=== PATIENT | male | born 1950 | race Caucasian/White ===

== ENCOUNTER 2020-06-20 15:09 | Outpatient (CLI) | payer OTHER, SELFPAY ==
--- NOTE | ~2020-06-20 | XR_ITS ---
EXAMINATION: XR hand RT 2V DATE: 06/20/2020 15:40 INDICATION: Anterior right thumb pain post injury TECHNIQUE: Posteroanterior and lateral views of the right hand were obtained. COMPARISON: None. FINDINGS: Alignment is normal. No fracture. Moderate to severe osteoarthritis at the triscaphe joint. Mild oste oarthritis at the first carpometacarpal, first metacarpophalangeal and multiple predominantly distal interphalangeal joints. Soft tissues are unremarkable. IMPRESSION: 1. No acute osseous abnormality. 2. 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 Reviewed, dictated and finalized at location A. M PAN SPONGER IMPRESSION: 1. No acute osseous abnormality. 2. 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
== END 2020-06-20 15:10 | disposition home or self-care (01) ==
PROVIDERS: PCP Internal Medicine; Visit Provider Internal Medicine
DX: S69.91XA Unspecified injury of right wrist, hand and finger(s), initial encounter (principal)
CPT/HCPCS: 73120

== ENCOUNTER 2021-04-19 09:24 | Outpatient (CLI) | payer MEDICARE, SELFPAY ==
--- NOTE | ~2021-04-19 | CT_ITS ---
EXAMINATION: CT diagnostic chest w con EXAM DATE: 04/19/2021 10:15 INDICATION: Apical pulmonary nodule f/u. TECHNIQUE: Spiral CT of the chest following intravenous injection of 75 mL Omnipaque 350. Axial, cor onal and sagittal images of the chest were reviewed. Coronal maximum intensity pixel images of chest reviewed. The dose-length product (DLP) for this examination was 298.88 mGy-cm. The exposure was t ailored according to patient size (auto mA exposure control), and iterative reconstruction (ASIR) was used as additional dose reduction technique. No prior chest CT or chest x-ray for comparison. FINDINGS: Several right lower lobe, right hilar calcified granulomata. The lungs are otherwise clear . There is mild emphysema and hyperinflation. There are no pleural or pericardial effusions. Trach eobronchial tree is patent. There is no mediastinal, hilar or axillary lymphadenopathy. There is no pneumothorax. Heart normal in size. There is mild coronary arterial calcification, arterial sc lerosis. There is a 4 cm cyst superior pole right kidney. There is moderate thoracic spondylosis wi thout osteoblastic or osteolytic lesions identified. IMPRESSION: Mild emphysema and hyperinflation. No apical nodule. Reviewed, dictated and finalized at location B. INUITY MANAGER
[2021-04-19 09:47] LABS: Estimated Glomerular Filt Rate > 60
== END 2021-04-19 09:25 | disposition home or self-care (01) ==
LOC: CHSIMG 09:25
PROVIDERS: PCP Internal Medicine; Visit Provider Internal Medicine
DX: R91.1 Solitary pulmonary nodule (principal)
CPT/HCPCS: 71260; Q9967

== ENCOUNTER 2021-11-13 14:48 | Outpatient (CLI) | payer MEDICARE, SELFPAY ==
--- NOTE | ~2021-11-13 | XR_ITS ---
EXAM: XR wrist LT min 3V DATE: 11/13/2021 15:26 HISTORY: LEFT WRIST PAIN SWELLING RADIAL SIDE . COMPARISON: None available. FINDINGS: Mildly decreased mineralization. No fracture or dislocation. No lytic or blastic lesion. M oderate narrowing and sclerosis at the triscaphe and first carpal metacarpal joints. Degenerative cys ts in the capitate and triquetral bones. No erosion or periosteal change. Wrist soft tissue swelling. IMPRESSION: No acute osseous finding in the left wrist. Degenerative changes described above. Reviewed, dictated and finalized at location K. IMPRESSION: No acute osseous finding in the left wrist. Degenerative changes de scribed above.
== END 2021-11-13 14:49 | disposition home or self-care (01) ==
LOC: CHSIMG 14:50
PROVIDERS: PCP Internal Medicine; Visit Provider Internal Medicine
DX: M25.532 Pain in left wrist (principal); M25.432 Effusion, left wrist
CPT/HCPCS: 73110

== ENCOUNTER 2023-10-11 11:43 | Outpatient (CLI) | payer MEDICARE, SELFPAY ==
--- NOTE | ~2023-10-11 | XR_ITS ---
Left wrist Technique: PA, oblique, lateral, and ulnar deviation views were obtained. Clinical History: Pain COMPARISON: 11/13/2021 Findings: No acute fracture or dislocation is seen. There is moderate degenerative change of the dena caphe joint and first CMC joint, similar to prior exam. Lucent lesion with relative expansion involvi ng the hamate bone extensively stable from prior exam.. Soft tissues are unremarkable. Impression: Overall, no change from prior exam. Stable degenerative changes, as above. 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 Reviewed, dictated and finalized at location . Impression: Overall, no change from prior exam. Stable degenerative changes, as above. 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
== END 2023-10-11 11:44 | disposition home or self-care (01) ==
LOC: CHSIMG 11:45
PROVIDERS: PCP Internal Medicine; Visit Provider Internal Medicine
DX: M25.532 Pain in left wrist (principal)
CPT/HCPCS: 73110

== ENCOUNTER 2023-11-25 11:10 | Outpatient (CLI) | payer MEDICARE, SELFPAY ==
--- NOTE | ~2023-11-25 | XR_ITS ---
[id number] Ordering provider: Rico Mcdaniel MD History: . dizziness, neck pain nki . Comparison: None. FINDINGS: VERTEBRAL BODIES: Normal height and alignment. No visible fracture or subluxation. The dens is intact . DISK SPACES: Narrowing of the disc C6-C7 and C7-T1. Multilevel facet joint disease. Multilevel uncove rtebral joint osteoarthritic changes. PARASPINOUS SOFT TISSUES: No prevertebral soft tissue swelling. Bilateral carotid calcification. IMPRESSION: No acute osseous abnormality cervical spine. Reviewed, dictated and finalized at location A.
[2023-11-25 11:30] LABS: Basophils Absolute Auto 0.08 K/mm3 (0.00-0.10); Eosinophils Absolute Auto 0.38 K/mm3 (0.02-0.50); Eosinophils Percent Auto 4.7 % (1.0-6.0); Hematocrit 35.6 % (37.0-46.0); Immature Granulocyte Absolute 0.03 K/mm3 (0.00-0.00); Immature Granulocyte Percent A 0.4 % (0.0-0.0); Lymphocytes Absolute Auto 1.58 K/mm3 (1.10-4.50); Lymphocytes Percent Auto 19.6 % (18.0-42.0); Mean Corpuscular HGB Conc 33.7 g/dL (32-36); Mean Corpuscular Hemoglobin 29.5 pg (27.0-31.0); Mean Corpuscular Volume 87.5 fL (78.0-102.0); Mean Platelet Volume 9.7 fl (8.7-11.0); Monocytes Absolute Auto 0.96 K/mm3 (0.10-0.90); Monocytes Percent Auto 11.9 % (2.0-11.0); Neutrophils Absolute Auto 5.05 K/mm3 (1.70-7.20); Neutrophils Percent Auto 62.4 % (50.0-70.0); Platelet Count Result 340 K/mm3 (150-420); Red Blood Count 4.07 M/mm3 (4.70-6.10); White Blood Count 8.1 K/mm3 (4.8-10.8)
[2023-11-25 11:31] LABS: Appearance Urine Clear (Clear); Bilirubin Urine Negative (Negative); Blood Urine Trace-intact (Negative); Color Urine Light Yellow (Yellow); Glucose Urine UA Negative (Negative); Ketones Urine Negative (Negative); Leukocyte Esterase Ur Negative (Negative); Nitrate Urine Negative (Negative); Protein Urine Negative (Negative); Urobilinogen Urine 0.2 mg/dL (0.2-1.0)
[2023-11-25 11:42] LABS: Add Urine Microscopic? YES; RBC Urine 0-2 /hpf (0-2); WBC Urine None seen /hpf (0-3)
[2023-11-25 11:43] LABS: Bacteria Urine None seen /hpf; Squamous Epithelial Cell Urine None seen /hpf (Few)
[2023-11-25 12:03] LABS: Alanine Aminotransferase 14 U/L (16-63); Albumin Level 3.6 g/dL (3.4-5.0); Alkaline Phosphatase 86 U/L (46-116); Anion Gap 7 mmol/L (4-12); Aspartate Amino Transferase 20 U/L (15-37); Bilirubin,Total 0.4 mg/dL (0.00-1.00); Calcium 8.8 mg/dL (8.5-10.1); Carbon Dioxide 28 mmol/L (21-32); Chloride 101 mmol/L (98-108); Cholesterol 170 mg/dL (0-200); Estimated Glomerular Filt Rate > 60; Glucose 97 mg/dL (70-99); HDL Direct 63 mg/dL (40-60); LDL Cholesterol Calculated 98 mg/dL (<130); Potassium 4.5 mmol/L (3.5-5.1); Prostate Specific Antigen 1.9 ng/mL (< OR = 4.0); Sodium 136 mmol/L (136-145); Total Protein 7.6 g/dL (6.4-8.2); Triglycerides 45 mg/dL (0-150)
[2023-11-25 12:12] LABS: Blood Urea Nitrogen 6 mg/dL (7-18); Osmolality Calculated 279 mOsm/kg (285-295)
[2023-11-25 12:13] LABS: CRP < 0.5 mg/dL (0.0-0.9)
[2023-11-25 18:24] LABS: Thyroid Stimulating Hormone 3.14 uIU/mL (0.36-3.74)
== END 2023-11-25 11:11 | disposition home or self-care (01) ==
LOC: CHSLAB 11:12
PROVIDERS: PCP Internal Medicine; Visit Provider Internal Medicine
DX: M54.2 Cervicalgia (principal); R42 Dizziness and giddiness; R01.1 Cardiac murmur, unspecified; E78.5 Hyperlipidemia, unspecified; Z12.5 Encounter for screening for malignant neoplasm of prostate
CPT/HCPCS: 36415; 72040; 80053; 80061; 81001; 84153; 84443; 85025; 86140; G0103

== ENCOUNTER 2023-12-26 13:10 | Outpatient (CLI) | payer MEDICARE, SELFPAY ==
--- NOTE | ~2023-12-26 | US_ITS ---
EXAMINATION: US carotid duplex BI DATE: 12/26/2023 14:14 INDICATION: Dizziness TECHNIQUE: Grayscale, color Doppler, and pulsed Doppler images of the cervical carotid arteries were obtained. The degree of vessel stenosis is placed in one of the following categories: normal, <50%, 5 0-69%, >=70% but less than near-occlusion, near-occlusion, or total occlusion. Note that percent sten osis relative to normal distal artery lumen diameter is indirectly measured from velocity measurement s as described by Davion, et al. Radiology 2003; 229:340-346. Notes: Normal: Peak systolic velocity <125 centimeters/sec and no plaque <50%. Peak systolic velocity <125 ( EDV <40; ICA/CCA PSV ratio <2.0; used these factors only a tandem lesions or low cardiac output or co ntralateral disease) 50-69 %: PSV 125-230 (EDV 40-100; ratio 2-4) >= 70% but less than near occlusion: PSV greater than 230 (EDV > 100; ratio> 4.0) Near Occlusion: PSV that is variable; markedly narrowed lumen Occlusion: Absent flow on color/spectral Doppler and no lumen on painter scale. COMPARISON: None. FINDINGS: RIGHT: The right common carotid artery (CCA) peak systolic velocity (PSV) is 83 cm/s. The right internal car otid artery (ICA) PSV is 70 cm/s. The right ICA end-diastolic velocity (EDV) is 30 cm/s. The right IC A/CCA PSV ratio is 0.84. The external carotid artery (ECA) PSV is 52 cm/s. There is antegrade flow in the right vertebral artery. LEFT: The left CCA PSV is 89 cm/s. The left ICA PSV is 75 cm/s. The left ICA EDV is 17 cm/s. The left ICA/C CA PSV ratio is 0.84. The ECA PSV is 85 cm/s. There is antegrade flow in the left vertebral artery. IMPRESSION: 1. Less than 50% stenosis in the right internal carotid artery by sonographic criteria. 2. Less than 50% stenosis in the left internal carotid artery by sonographic criteria. Reviewed, dictated and finalized at location B. IMPRESSION: 1. Less than 50% stenosis in the right internal carotid artery by sonographic joshua gibbs. 2. Less than 50% stenosis in the left internal carotid artery by sonographic nazia wu.
--- NOTE | 2023-12-26 13:19 | ECHO_ITS ---
Patient Info Name: Chaya Cat Age: 73 years : 1950 Gender: Male Ht: 68 in Wt: 176 lbs BSA: 1.97 m2 HR: 60 bpm BP: 150 / 88 mmHg Technical Quality: Fair Exam Date: 12/26/2023 1:10 PM Exam Location: [facility] Patient Status: Outpatient Admit Date: 12/26/2023 Staff Ordering Physician: Rico Mcdaniel MD Records Management Manager: Lucas Chris RDCS Attending Provider: Rico Mcdaniel MD Exam Type: CA echo doppler color flow Study Info Indications - systolic murmur Complete two-dimensional, color flow and Doppler transthoracic echocardiogram is performed. Summary 1. Complete two-dimensional, color flow and Doppler transthoracic echocardiogram is performed. 2. Left ventricular chamber dimension is normal. 3. Left ventricular systolic function is normal, estimated at 60-65%. 4. The left ventricular diastolic function is normal. 5. E/e' 9 is minimally elevated. 6. There is moderate aortic valve sclerosis. 7. There is moderate aortic valve stenosis with a peak velocity of 275 cm/s, mean gradient of 18 mmHg, and aortic valve area of 1.3 cm2. 8. No pulmonary hypertension, estimated pulmonary arterial systolic pressure is 26 mmHg. Left Ventricle E/e' 9 is minimally elevated. Left ventricular chamber dimension is normal. Left ventricular systolic function is normal, estimated at 60-65%. The left ventricular diastolic function is normal. Right Ventricle Right ventricular systolic function is normal and with normal TAPSE 2.4 cm. Right ventricular chamber dimension is normal. Left Atria Left atrial chamber dimension is normal. Right Atria Right atrial chamber dimension is normal. Aortic Valve The aortic valve is trileaflet. There is moderate aortic valve sclerosis. There is moderate aortic valve stenosis with a peak velocity of 275 cm/s, mean gradient of 18 mmHg, and aortic valve area of 1.3 cm2. There is no aortic valve regurgitation. Pulmonic Valve There is no pulmonic regurgitation. Mitral Valve There is no mitral valve stenosis. There is no mitral valve regurgitation. Tricuspid Valve There is no tricuspid valve regurgitation. No pulmonary hypertension, estimated pulmonary arterial systolic pressure is 26 mmHg. Pericardium/Pleural There is no pericardial effusion. Inferior Vena Cava Normal inferior vena cava with >50% collapse upon inspiration consistent with normal right atrial pressure, 5 mmHg. Aorta The aortic root size at the sinus of Valsalva is normal. Left Ventricular Outflow Tract Name Value Normal LVOT 2D LVOT Diameter 2.0 cm LVOT Doppler LVOT Peak Velocity 104 cm/s LVOT Peak Gradient 4 mmHg LVOT Mean Gradient 3 mmHg LVOT VTI 25 cm LVOT VTI/AV VTI Ratio 0.4 LVOT Stroke Volume 79 ml Pulmonic Valve Name Value Normal PV Doppler PV Peak Velocity 108
== END 2023-12-26 13:11 | disposition home or self-care (01) ==
LOC: CHSIMG 13:12
PROVIDERS: PCP Internal Medicine; Visit Provider Internal Medicine
DX: R42 Dizziness and giddiness (principal); M54.2 Cervicalgia; R01.1 Cardiac murmur, unspecified; I65.23 Occlusion and stenosis of bilateral carotid arteries; I35.0 Nonrheumatic aortic (valve) stenosis
CPT/HCPCS: 93306; 93880

== ENCOUNTER 2024-02-04 12:01 | Outpatient (CLI) | payer MEDICARE, SELFPAY ==
[2024-02-04 12:15] LABS: Basophils Absolute Auto 0.07 K/mm3 (0.00-0.10); Basophils Percent Auto 1.1 % (0.0-1.0); Eosinophils Absolute Auto 0.49 K/mm3 (0.02-0.50); Eosinophils Percent Auto 7.5 % (1.0-6.0); Hematocrit 42.2 % (37.0-46.0); Hemoglobin 14.1 g/dL (12.4-15.3); Immature Granulocyte Absolute 0.02 K/mm3 (0.00-0.00); Immature Granulocyte Percent A 0.3 % (0.0-0.0); Lymphocytes Absolute Auto 1.86 K/mm3 (1.10-4.50); Lymphocytes Percent Auto 28.4 % (18.0-42.0); Mean Corpuscular HGB Conc 33.4 g/dL (32-36); Mean Corpuscular Volume 86.7 fL (78.0-102.0); Mean Platelet Volume 9.7 fl (8.7-11.0); Monocytes Absolute Auto 0.79 K/mm3 (0.10-0.90); Neutrophils Absolute Auto 3.33 K/mm3 (1.70-7.20); Neutrophils Percent Auto 50.7 % (50.0-70.0); Platelet Count Result 282 K/mm3 (150-420); Red Blood Count 4.87 M/mm3 (4.70-6.10); Red Cell Distribution Width 14.3 % (11.6-14.4); White Blood Count 6.6 K/mm3 (4.8-10.8)
[2024-02-04 13:01] LABS: Ferritin 34 ng/mL (26-388)
== END 2024-02-04 12:02 | disposition home or self-care (01) ==
LOC: CHSLAB 12:04
PROVIDERS: PCP Internal Medicine; Visit Provider Internal Medicine
DX: D64.9 Anemia, unspecified (principal)
CPT/HCPCS: 36415; 82728; 85025

== ENCOUNTER 2025-02-18 00:31 | Day surgery (SDC) | payer MEDICARE, SELFPAY ==
[2025-02-04 11:29] VITALS: BMI 26.8
--- NOTE | 2025-02-04 12:02 | PC.NURSE ---
Pt h/o aortic stenosis. Clearance form sent to Dr. Lerner.
--- OUTSIDE RECORDS SUMMARY | 2025-02-18 00:34 | XMS_ITS | Clinical Summary ---
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 4 Active losartan (COZAAR) 25 mg tablet Take 1 tablet (25 mg total) by mouth daily 90 tablet 3 5 11/13/19 26 Active Active Problems Problem Noted Date Diagnosed Date Primary hypertension 11/12/2024 Sinus bradycardia 11/12/2024 Dizziness 11/12/2024 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 Overview (09/07/2016): TOX DIF GOITER NO CRISIS 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/17/2013 Overview (09/05/2016): POSTABLAT HYPOTHYR NEC Social History Tobacco Use Types Packs/Day Years Used Date Smoking Tobacco: Never Tobacco Cessation:Counseling Given: Not Answered Sex and Gender Information Value Date Recorded Sex Assigned at Not on file 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 Gender Identity Not on file Sexual Orientation Not on file Obstetrics History Last Filed Vital Signs Vital Sign Reading Time Taken Comments Blood Pressure 142/83 11/12/2024 9:46 AM CDT Pulse 67 11/12/2024 9:46 AM CDT Temperature - - Respiratory Rate 18 11/12/2024 9:46 AM CDT Oxygen Saturation - - Inhaled Oxygen Concentration - - Weight 82.1 kg (181 lb) 11/12/2024 9:46 AM CDT Height 172.7 cm (5' 8) 11/12/2024 9:46 AM CDT Body Mass Index 27.52 11/12/2024 9:46 AM CDT Plan of Treatment Health Maintenance Due Date Last Done Comments Depression Screening 1950 Fall Risk Assessment 1950 Hepatitis C Screening 1950 Hepatitis B Screening 1967 Well Visit 65+ 2014 Pneumococcal vaccine 65+ (2 of 2 - PCV) 03/16/2017 03/16/2016 Covid-19 Vaccine ( - 2024-2 6 season) 2025 03/16/2023, 02/27/2022, 04/19/2021, Additional history exists Influenza Vaccine (#1) 2025 , 04/10/2021, 04/01/2020, Additional history exists DTaP/Tdap/Td Vaccine (2 - Td or Tdap) 08/24/2032 08/24/2022 Zoster Vaccine Completed 10/29/2022, 08/24/2022 Insurance Care Teams Tea Taster Relationship Specialty Start Date End Date Rico Mcdaniel MD [address] [place] [address] PCP - General Internal Medicine 11/12/24
[2025-02-18 12:25] VITALS: BP 116/93; PULSE 76; RESP 16; O2SAT 100; BMI 27.8
--- NOTE | 2025-02-18 12:25 | P.PNAN_ITS ---
Anes - Initial Pre Proc Eval Procedure: Operation Date: 02/18/25 14:00 Proposed Procedures p Diagnostic Colonoscopy - Cristhian Simmons MD Date/Time: 02/18/25 12:25 Surgeon: Cristhian Simmons MD Pre Op Diagnosis: Change in bowel habit Patient Data Age: 75 Gender: M Height: 1.73 m Weight: 80 kg Allergies Allergy/AdvReac Type Severity Reaction Status Date / Time No Known Allergies Allergy Verified 02/18/25 12:23 Home Medications ?Medication ?Instructions ?Recorded ?Confirmed ?Type levothyroxine 125 mcg tablet 125 mcg PO DAILY 02/04/25 02/18/25 History losartan 25 mg tablet 25 mg PO DAILY 02/04/2502/01 8 History Patient hx anesthesia problems: none Family hx anesthesia problems: none Results Review: All pre-operative results and documents have been reviewed as part of the pre- operative evaluation. [facility] Past Medical History Medical History (Updated 02/18/25 @ 12:26 by Rajat Bermudez MD) Hypothyroidism Overweight Bradycardia Paroxysmal A-fib HTN (hypertension) Family History Family History Father Family history of kidney stones Social History Social History Smoking status: Former smoker Tobacco type: cigarettes and pipe Additional smoking assessment comments: As teen Alcohol intake: current Living arrangements: with family Spiritual care concerns: No Anes - Eval Final PreProcedure Day of Procedure 02/18/25 12:25 Patient weight: normal Heart: regular rate and rhythm Lungs: clear to auscultation Airway: Mallampati scale class II Neurological: alert and oriented Last oral intake: >/= 8 hours ASA classification: III Emergent: no Anesthetic plan: proceed Anesthesia type and monitoring: general GIVS and standard monitoring Results Review: All pre-operative results and documents have been reviewed as part of the pre- operative evaluation. Informed Consent: The patient's anesthetic plan and its attendant risks and benefits were discussed with the patient/family/POA. Questions were solicited and answers provided to the satisfaction of the patient/family/POA.
[2025-02-18] MEDS: LACTATED RINGERS 1,000 ML 150 ML IV CONT (12:33)
--- NOTE | 2025-02-18 12:50 | PM.IMHP ---
H&P: HPI History of Present Illness Date/Time: 02/18/25 12:50 Chief Complaint: Irregular bowel habits Narrative: this patient is referred for colonoscopy due to the presence of irregularity in his bowels habits: Occasional diarrhea alternating with constipation. His last colonoscopy was more than 20 years ago. He has been undergoing Cologuard tests over the past 3 years, all of them negative. There is no abdominal pain or unintentional loss. Review of Systems Review of Systems: All systems reviewed & are unremarkable except as noted in HPI and below PMFSH Past Medical History Medical History (Updated 02/18/25 @ 12:51 by Cristhian Simmons MD) Hypothyroidism Overweight Bradycardia Paroxysmal A-fib HTN (hypertension) Family History Family History Father Family history of kidney stones Social History Social History Smoking status: Former smoker Tobacco type: cigarettes and pipe Additional smoking assessment comments: As teen Alcohol intake: current Living arrangements: with family Spiritual care concerns: No Meds Home Medications and Allergies Home Medications ?Medication ?Instructions ?Recorded ?Confirmed ?Type levothyroxine 125 mcg tablet 125 mcg PO DAILY 02/04/25 02/18/25 History losartan 25 mg tablet 25 mg PO DAILY 02/04/25 02/18/25 History Allergies Allergy/AdvReac Type Severity Reaction Status Date / Time No Known Allergies Allergy Verified 02/18/25 12:23 Vital Signs Vital Signs - 24 hr 02/18/25 12:25 Pulse Rate 76 Respiratory Rate 16 Blood Pressure 116/93 H Pulse Oximetry 100 Oxygen Delivery Room Air Exam Const: General: cooperative and healthy appearing Resp: Effort & Inspection: normal respiratory effort and able to speak in complete sentences Auscultation: clear to auscultation bilaterally Cardio: Rate: regular rate Rhythm: regular rhythm GI: Inspection: normal to inspection GI Palp: No No hepatosplenomegaly present Auscultation: normal bowel sounds Rectal Exam: deferred Skin: General skin exam: normal color Psych: Appearance: grossly normal Mental Status: mental status grossly normal Assessment and Plan Assessment and plan (1) Change in bowel habits: Code(s): R19.4 - Change in bowel habit Status: Acute Assessment and Plan: The patient is deemed a good candidate for the procedure. Consent signed. Will proceed.
[2025-02-18] MEDS: SIMETHICONE ORAL SUSPENSION 20 MG/0.3 ML 30 ML BOTTLE 0.6 ML IRRIGATION (12:59)
--- NOTE | 2025-02-18 13:23 | S_PTH ---
PATIENT: Chaya Cat LOC: [facility] Saenz#:[id number] AGE/SX: 75/M ROOM: RE02/18/[address]: Cristhian Simmons MD : 1950 BED: DIS: 02/18/2025 SPEC #: [id number] RECD: 02/18/25 14:12 STATUS: JANETTE REGerman #: [id number] KAYLA: 02/18/25 13:[address]: Cristhian Simmons DEPT: [facility] Surgical RECD BY: Leonela Srivastava ENTERED: 02/18/25 14:12 SP TYPE: Surgical OTHR DR: Rico Mcdaniel MD Tissues: A - Colon Polypectomy Procedures: Hematoxylin and Eosin Stain Gross and Microscopic Level 4
[2025-02-18 13:26] VITALS: BP 70/45; PULSE 69; RESP 17; O2SAT 97
[2025-02-18 13:36] VITALS: BP 91/51; PULSE 63; RESP 19; O2SAT 97
[2025-02-18 13:46] VITALS: BP 107/67; PULSE 67; RESP 18; O2SAT 100
== END 2025-02-18 14:00 | disposition home or self-care (01) ==
PROVIDERS: PCP Internal Medicine; Referring Provider Internal Medicine; Visit Provider Internal Medicine Gastroenterology
PROC: 0DJD8ZZ Inspection of Lower Intestinal Tract, Via Natural or Artificial Opening Endoscopic (ICD-10-PCS; CPT 45378; principal; 2025-02-18 14:00)
DX: K63.5 Polyp of colon (principal); K64.8 Other hemorrhoids; E03.9 Hypothyroidism, unspecified; I10 Essential (primary) hypertension; I48.0 Paroxysmal atrial fibrillation; R00.1 Bradycardia, unspecified; Z98.890 Other specified postprocedural states; Z98.0 Intestinal bypass and anastomosis status; Z90.49 Acquired absence of other specified parts of digestive tract; Z87.891 Personal history of nicotine dependence
CPT/HCPCS: 45390; 88305; J2003; J2371; J2704; J7120